=== PATIENT | male | born 1990 ===

== ENCOUNTER 2018-11-01 13:40 | Emergency (ER) | payer OTHER ==
[2018-11-01 13:51] VITALS: BP 108/72; PULSE 69; RESP 18; TEMP 98; O2SAT 98
--- NOTE | 2018-11-01 19:09 | C.PDOC ---
History Of Present Illness 28 y/o male presents to the ER for wound check to the right thumb. Patient states that he was evaluated for skin avulsion in the hospital 2 days ago. Patient denies having fever and chills. Chief Complaint (Nursing): Upper Extremity Problem/Injury History Per: Patient History/Exam Limitations: no limitations Past Medical History Reviewed: Historical Data, Nursing Documentation, Vital Signs Vital Signs: Last Vital Signs Temp 98 F 11/01/18 13:48 Pulse 69 11/01/18 13:48 Resp 18 11/01/18 13:48 BP 108/72 11/01/18 13:48 Pulse Ox 98 11/01/18 13:48 - Medical History PMH: No Chronic Diseases Surgical History: No Surg Hx Family History: States: No Known Family Hx - Social History Hx Alcohol Use: Yes Hx Substance Use: Yes - Immunization History Hx Tetanus Toxoid Vaccination: Yes Hx Influenza Vaccination: Yes Hx Pneumococcal Vaccination: No Review Of Systems Except As Marked, All Systems Reviewed And Found Negative. Constitutional: Negative for: Fever, Chills Physical Exam - Physical Exam Appears: Non-toxic, No Acute Distress Skin: Normal Color, Warm, Dry, Other (dressing adhered to wound in right thumb, mild bleeding noted with removal of dressing, approximately 1 cm avulsion noted proximal to right thumbnail) Head: Atraumatic, Normacephalic Eye(s): bilateral: Normal Inspection Nose: Normal Oral Mucosa: Moist Neck: Supple Chest: Symmetrical Neurological/Psych: Oriented x3, Normal Speech ED Course And Treatment O2 Sat by Pulse Oximetry: 98 (RA) Pulse Ox Interpretation: Normal Medical Decision Making Medical Decision Making: Right thumb has been re-bandaged. Patient has been discharged and instructed to follow up in clinic. Disposition - Disposition Referrals: [facility] [Outside] [facility] [Outside] Disposition: HOME/ ROUTINE Disposition Time: 16:00 Condition: GOOD Additional Instructions: ORAL ALEXIS, thank you for letting us take care of you today. The emergency medical care you received today was directed at your acute symptoms. If you were prescribed any medication, please fill it and take as directed. It may take several days for your symptoms to resolve. Return to the Emergency Department if your symptoms worsen, do not improve, or if you have any other problems. Please contact your doctor or call one of the physicians/clinics you have been referred to that are listed on the Patient Visit Information form that is included in your discharge packet. Bring any paperwork you were given at discharge with you along with any medications you are taking to your follow up visit. Our treatment cannot replace ongoing medical care by a primary care provider outside of the emergency department. Thank you for allowing the [facility] team to be part of your care today. Follow up with the clinic this week in 2-3 days for a wound check and re- evaluation. ORAL ALEXIS, rosie por dejarnos cuidar de usted tessa. La atencin mdica de emergencia que recibi hoy se dirigi a steven sntomas agudos. Si le recetaron algn medicamento, llnelo y tmelo segn las indicaciones. Los sntomas pueden tardar varios reis en resolverse. Regrese al Departamento de Emergencias si steven sntomas empeoran, no mejoran o si tiene otros problemas. Comunquese con delvalle mdico o llame a dae de los mdicos / clnicas a los que zhou sido referido que figuran en el formulario de Informacin de visita al paciente que se incluye en delvalle paquete de salud. Lleve todos los documentos que recibi al momento del salud junto con los medicamentos que est tomando para delvalle visita de seguimiento. Nuestro tratamiento no puede reemplazar la atencin mdica continua por parte de un proveedor de atencin primaria fuera del departamento de emergencias. Rosie por permitir que el equipo de [facility] [employer] sea parte de delvalle atencin hoy. Antony un seguimiento con la clnica esta semana en 2 a 3 reis para lynda revisin y reevaluacin de la herida. Instructions: Wound Care (DC) Forms: [email or web address] ([place]ese), Work Excuse Print Language: KINYARWANDA - Clinical Impression Clinical Impression: Visit for wound check - Scribe Statement The provider has reviewed the documentation as recorded by the Scribe Summen Inocencio Provider Attestation: All medical record entries made by the Wilder were at my direction and personally dictated by me. I have reviewed the chart and agree that the record accurately reflects my personal performance of the history, physical exam, medical decision making, and the department course for this patient. I have also personally directed, reviewed, and agree with the discharge instructions and disposition.
== END 2018-11-01 16:17 | disposition home or self-care (01) ==
LOC: C.ER 13:40
DX: Z51.89 Encounter for other specified aftercare (principal)

== ENCOUNTER 2018-11-03 14:01 | Emergency (ER) | payer OTHER ==
[2018-11-03 14:20] VITALS: O2SAT 100
[2018-11-03 16:14] VITALS: BP 118/68; PULSE 64; RESP 18; TEMP 98.5
--- NOTE | 2018-11-03 18:37 | C.PDOC ---
History Of Present Illness 28 y/o male comes in to ED for a wound check. Patient was in the ED 2 days ago for similar presentation. Patient had an avulsion injury to his right thumb. Patient has no other complaints at this time. Time Seen by Provider: 11/03/18 14:39 Chief Complaint (Nursing): Wound Check History Per: Patient History/Exam Limitations: no limitations Past Medical History Reviewed: Historical Data, Nursing Documentation, Vital Signs Vital Signs: Last Vital Signs Temp 98.5 F 11/03/18 16:13 Pulse 64 11/03/18 16:13 Resp 18 11/03/18 16:13 BP 118/68 11/03/18 16:13 Pulse Ox 100 11/03/18 16:13 Family History: States: No Known Family Hx - Social History Hx Alcohol Use: Yes Hx Substance Use: Yes - Immunization History Hx Tetanus Toxoid Vaccination: Yes Hx Influenza Vaccination: Yes Hx Pneumococcal Vaccination: No Review Of Systems Except As Marked, All Systems Reviewed And Found Negative. Musculoskeletal: Positive for: Other (Right thumb pain) Neurological: Negative for: Weakness, Numbness Physical Exam - Physical Exam Appears: Non-toxic, No Acute Distress Skin: Warm, Dry Head: Atraumatic Eye(s): bilateral: Normal Inspection Oral Mucosa: Moist Neck: Supple Extremity: Capillary Refill (less than 2 seconds), No Swelling, Other (well healing right thumb skin avulsion, no drainage, no bleeding) Extremity: Bilateral: Normal ROM Pulses: Left Radial: Normal, Right Radial: Normal Neurological/Psych: Oriented x3, Normal Speech, Normal Motor, Normal Sensation ED Course And Treatment O2 Sat by Pulse Oximetry: 100 (RA) Pulse Ox Interpretation: Normal Medical Decision Making Medical Decision Making: Progress: Dressing applied. Instructed to follow up with the clinic. Disposition - Disposition Referrals: [facility] [Outside] [facility] [Outside] Disposition: HOME/ ROUTINE Disposition Time: 15:40 Condition: GOOD Additional Instructions: ORAL ALEXIS, thank you for letting us take care of you today. The emergency medical care you received today was directed at your acute symptoms. If you were prescribed any medication, please fill it and take as directed. It may take several days for your symptoms to resolve. Return to the Emergency Department if your symptoms worsen, do not improve, or if you have any other problems. Please contact your doctor or call one of the physicians/clinics you have been referred to that are listed on the Patient Visit Information form that is included in your discharge packet. Bring any paperwork you were given at discharge with you along with any medications you are taking to your follow up visit. Our treatment cannot replace ongoing medical care by a primary care provider outside of the emergency department. Thank you for allowing the [facility] team to be part of your care today. Follow up in the clinic in 2 days for re-evaluation and further wound care. ORAL ALEXIS, rosie por dejarnos cuidar de usted tessa. La atencin mdica de emergencia que recibi hoy se dirigi a steven sntomas agudos. Si le recetaron algn medicamento, llnelo y tmelo segn las indicaciones. Los sntomas pueden tardar varios reis en resolverse. Regrese al Departamento de Emergencias si steven sntomas empeoran, no mejoran o si tiene otros problemas. Comunquese con delvalle mdico o llame a dae de los mdicos / clnicas a los que zhou sido referido que figuran en el formulario de Informacin de visita al paciente que se incluye en delvalle paquete de salud. Lleve todos los documentos que recibi al momento del salud junto con los medicamentos que est tomando para delvalle visita de seguimiento. Nuestro tratamiento no puede reemplazar la atencin mdica continua por parte de un proveedor de atencin primaria fuera del departamento de emergencias. Rosie por permitir que el equipo de [facility] sea parte de delvalle atencin hoy. Antony un seguimiento en la clnica en 2 reis para reevaluar y brindar ms atencin a las heridas. Instructions: Wound Care (DC) Forms: [employer] (Cymro), Work Excuse - Clinical Impression Clinical Impression: Visit for wound check - Scribe Statement The provider has reviewed the documentation as recorded by the Scribe Laurel Lino Provider Attestation: All medical record entries made by the Wilder were at my direction and personally dictated by me. I have reviewed the chart and agree that the record accurately reflects my personal performance of the history, physical exam, medical decision making, and the department course for this patient. I have also personally directed, reviewed, and agree with the discharge instructions and disposition.
== END 2018-11-03 16:16 | disposition home or self-care (01) ==
LOC: C.ER 14:01
DX: Z48.00 Encounter for change or removal of nonsurgical wound dressing (principal)

== ENCOUNTER 2018-11-05 15:01 | Emergency (ER) | payer OTHER ==
[2018-11-05 15:21] VITALS: BMI 21.7
[2018-11-05 15:23] VITALS: BP 126/82; PULSE 68; TEMP 98.2; O2SAT 99
[2018-11-05] MEDS ORDERED: Bacitracin 500 Units/gm Oint Foilpak UD TOP ONE (15:52)
[2018-11-05] MEDS ORDERED: Bacitracin 500 Units/gm Oint Foilpak UD ONE (15:57)
--- NOTE | 2018-11-05 16:01 | C.PDOC ---
History Of Present Illness 28 year old male presents to the ED for re-evaluation of a wound to his right thumb. Patient sliced his finger on a meat scrubber on 11/01 and was instructed to return for wound check. He denies any fever, new pain, redness, or drainage near the site. Time Seen by Provider: 11/05/18 15:50 Chief Complaint (Nursing): Wound Check History Per: Patient History/Exam Limitations: no limitations Onset/Duration Of Symptoms: Days Ago (4) Current Symptoms Are (Timing): Better Past Medical History Reviewed: Historical Data, Nursing Documentation, Vital Signs Vital Signs: Last Vital Signs Temp 98.2 F 11/05/18 15:21 Pulse 68 11/05/18 15:21 Resp 20 11/05/18 15:21 BP 126/82 11/05/18 15:21 Pulse Ox 99 11/05/18 15:21 - Medical History PMH: No Chronic Diseases Surgical History: No Surg Hx Family History: States: No Known Family Hx - Social History Hx Alcohol Use: Yes Hx Substance Use: Yes - Immunization History Hx Tetanus Toxoid Vaccination: Yes Hx Influenza Vaccination: Yes Hx Pneumococcal Vaccination: No Review Of Systems Constitutional: Negative for: Fever, Chills Skin: Positive for: Lesions (healing thumb wound) Neurological: Negative for: Weakness, Numbness Physical Exam - Physical Exam Appears: Well, Non-toxic, No Acute Distress Skin: Warm, Dry, No Rash Head: Atraumatic, Normacephalic Eye(s): bilateral: Normal Inspection Chest: Symmetrical Respiratory: No Accessory Muscle Use Extremity: Normal ROM (to all digits), Capillary Refill (< 2 sec), No Swelling, Other (Partial thickness avulsion to the right 1st digit, no signs of infection) Pulses: Left Radial: Normal, Right Radial: Normal Neurological/Psych: Oriented x3, Normal Speech, Normal Motor, Normal Sensation ED Course And Treatment O2 Sat by Pulse Oximetry: 99 (on room air) Pulse Ox Interpretation: Normal Medical Decision Making Medical Decision Making: Impression: Visit for wound check Initial Plan: Wound cleansed with saline. Bacitracin and sterile dressing applied. Patient is stable for discharge home. Disposition Counseled Patient/Family Regarding: Diagnosis, Need For Followup - Disposition Disposition: HOME/ ROUTINE Disposition Time: 16:01 Condition: GOOD Additional Instructions: Mantenga el eleni limpia y seca. Puede lavarse suavemente con agua y jabn. Cambie el apsito 1-2 veces al da. aplicar ungento antibitico al eleni Instructions: Wound Care (DC) Forms: Work Excuse Print Language: ARMENIAN - POA Present On Arrival: None - Clinical Impression Clinical Impression: Visit for wound check, Avulsion of skin of finger - PA / DISTRICT [employer]UST[employer]S DIRECTOR / Resident Statement MD/DO has reviewed & agrees with the documentation as recorded. - Scribe Statement The provider has reviewed the documentation as recorded by the Scribe Silvina Newby All medical record entries made by the Willaibjim were at my direction and personally dictated by me. I have reviewed the chart and agree that the record accurately reflects my personal performance of the history, physical exam, medical decision making, and the department course for this patient. I have also personally directed, reviewed, and agree with the discharge instructions and disposition.
[2018-11-05 16:38] VITALS: RESP 18
== END 2018-11-05 16:38 | disposition home or self-care (01) ==
LOC: C.ER 15:01
DX: Z48.00 Encounter for change or removal of nonsurgical wound dressing (principal); S61.101D Unspecified open wound of right thumb with damage to nail, subsequent encounter; X58.XXXD Exposure to other specified factors, subsequent encounter